=== PATIENT | male | born 1950 | race Caucasian/White ===

== ENCOUNTER 2022-09-30 09:28 | Emergency (ER) | payer BC ==
[~2022-09-30] VITALS: Ht 170.2 cm; Wt 76.8 kg
[2022-09-30 10:41] VITALS: BP 130/79; TEMP 97.7; O2SAT 99
== END 2022-09-30 10:50 | disposition home or self-care (01) ==
LOC: M ED 09:28
DX: T25.029A Burn of unspecified degree of unspecified foot, initial encounter (principal); X32.XXXA Exposure to sunlight, initial encounter; Y92.89 Other specified places as the place of occurrence of the external cause; Y93.89 Activity, other specified; Y99.8 Other external cause status; I10 Essential (primary) hypertension; I48.91 Unspecified atrial fibrillation; Z86.718 Personal history of other venous thrombosis and embolism; E78.5 Hyperlipidemia, unspecified

== ENCOUNTER 2022-11-02 20:20 | Emergency (ER) | payer BC ==
[~2022-11-02] VITALS: Ht 170.2 cm; Wt 75.0 kg
[2022-11-02 22:02] LABS: BASO % 0.2 % (0.0-1.0); HEMATOCRIT 40.7 % (42.0-52.0); HEMOGLOBIN 13.3 g/dl (13.5-17.5); LYMPH # 0.2 10^3/uL (1.5-5.0); LYMPH % 2.7 % (24.0-44.0); MEAN CORPUSCULAR HEMOGLOBIN 31.5 pg (27.0-33.0); MEAN CORPUSCULAR HGB CONC 32.7 g/dl (32.0-36.5); MEAN CORPUSCULAR VOLUME 96.4 fl (80.0-96.0); MONO # 0.2 10^3/uL (0.0-0.8); MONO % 3.7 % (2.0-8.0); NEUTROPHILS # 5.5 10^3/uL (1.5-8.5); NEUTROPHILS % 92.2 % (36.0-66.0); PLATELET COUNT, AUTOMATED 214 10^3/uL (150-450); RED BLOOD COUNT 4.22 10^6/uL (4.30-6.10); WHITE BLOOD COUNT 5.9 10^3/uL (4.0-10.0)
[2022-11-02 22:26] LABS: C REACTIVE PROTEIN QUANTITATIV 10.1 MG/DL (<1.0); CALCIUM LEVEL 9.3 MG/DL (8.3-10.6); CREATININE FOR GFR 1.7 MG/DL (0.70-1.30); GLOMERULAR FILTRATION RATE 42.5 (>42); POTASSIUM SERUM 4.5 MMOL/L (3.5-5.1)
[2022-11-03 00:58] VITALS: BP 127/74; TEMP 98; O2SAT 95
== END 2022-11-03 03:30 | disposition left against medical advice (07) ==
LOC: M ED 20:20
DX: Z53.21 Procedure and treatment not carried out due to patient leaving prior to being seen by health care provider (principal)